=== PATIENT | female | born 1945 | race Caucasian/White ===

== ENCOUNTER 2019-03-07 07:47 | Day surgery (SDC) | payer MEDICARE, OTHER ==
[~2019-03-07] VITALS: Ht 152.4 cm; Wt 59.2 kg
[~2019-03-07 07:47] MED LIST: CELE200C PO; EXCED PO; LEVO100T8 PO; MULT1CAP20 PO
[2019-03-07 09:00] VITALS: Ht 152.4 cm; Wt 59.2 kg
[2019-03-07] MEDS ORDERED: LOSA50TA14 PO (09:09)
[2019-03-07] MEDS ORDERED: LEVO88TA3 PO (09:09)
[2019-03-07] MEDS ORDERED: GABA400C14 PO (09:09)
[2019-03-07 09:25] VITALS: BP 141/65; PULSE 59; RESP 16
--- NOTE | 2019-03-07 09:28 | PREAC ---
Date/Time of Note Date/Time of Note DATE: 03/07/19 TIME: : Anesthesia Eval and Record Evaluation Time Pre-Procedure Interview DATE: 03/07/19 TIME: : Age 73 Sex female NPO: 8 hrs Preoperative diagnosis Rectal bleeding; change in bowel habits Planned procedure Colonoscopy Past Medical History Past Medical History: Includes Cardio: HTN Endo: Hypothyroid Surgery & Anesthesia Issues No known issue (liu; thyroid sx) Meds Anticoagulation: No Beta Philippe within 24 hr: No Reason Beta Philippe not given: Pt. not on B-Philippe Reported Medications Losartan Potassium* (Losartan Potassium*) 50 Mg Tablet, 50 MG PO DAILY, TAB 03/07/19 Gabapentin* (Gabapentin*) 400 Mg Capsule, 800 MG PO TID, #180 CAP 03/07/19 Levothyroxine Sodium* (Levothyroxine Sodium*) 88 Mcg Tablet, 88 MCG PO BEFORE BREAKFAST, #30 TAB 03/07/19 Multivitamins* (Multivitamin*) 1 Udcap Capsule, 1 TAB PO DAILY, TAB 07/25/14 Discontinued Reported Medications Acetaminophen/Aspirin/Caffeine* (Excedrin*) 1 Tab Tab, 2 TAB PO, TAB 07/25/14 Celecoxib* (Celebrex*) 200 Mg Capsule, 200 MG PO BID PRN for PAIN, CAP 07/25/14 Levothyroxine Sodium* (Levothyroxine Sodium*) 100 Mcg Tablet, 100 MCG PO AC BREAKFAST, TAB 07/25/14 Meds reviewed: Yes Allergies Coded Allergies: No Known Allergy (Unverified , 07/25/14) Allergies Reviewed: Yes Labs/Studies Labs Reviewed: Reviewed by anesthesiologist test: N/A Pre-procedure Exam Airway: Adequate mouth opening, Adequate thyromental dist Mallampati: Mallampati II Teeth: Abnormal (dentures upper and lower) Lung: Normal Heart: Normal ASA Physical Status ASA physical status: 2 Emergency: None Planned Anesthetic General/MAC: MAC Pre-operative Attestations Prior to commencing anesthesia and surgery, the patient was re-evaluated, there was verification of: *The patient's identity *The results of appropriate recent lab work and preoperative vital signs *The above evaluation not changing prior to induction *Anesthetic plan, risk benefits, alternative and complications discussed with patient/family; questions answered; patient/family understands, accepts and wishes to proceed. KIMMY DUBON Mar 07, 2019 09:28
[2019-03-07] MEDS ORDERED: LIDOCAINE 2% (SDV) 5 ML INJ ONE (09:30)
[2019-03-07] MEDS ORDERED: FENTAnyl 50 MCG/ML VIAL IV PRN (09:30)
[2019-03-07] MEDS ORDERED: ACETAMINOPHEN 500 MG TAB PO PRN (09:30)
[2019-03-07] MEDS ORDERED: PROPOFOL 40 ML ONE (09:30)
[2019-03-07] MEDS ORDERED: ONDANSETRON 4 MG INJ IV PRN (09:30)
[2019-03-07] MEDS ORDERED: ALBUTEROL 0.083% (NEB) 2.5 MG/3 ML AMP HHN PRN (09:30)
--- NOTE | 2019-03-07 10:16 | PAC ---
Date/Time of Note Date/Time of Note DATE: 03/07/19 TIME: 10:14 Post-Anesthesia Notes Post-Anesthesia Note Last documented vital signs Vital Signs Date Temp Pulse Resp B/P (MAP) Pulse Ox O2 O2 Flow FiO2 Time Delivery Rate 03/07/19 98.8 98 59 61 16 18 141/65 97 99 Room 09:25 100 (90) 129/ Air face 7 62 mask 8L Activity: WNL Respiratory function: WNL Cardiovascular function: WNL Mental status: Baseline Pain reasonably controlled: Yes Hydration appropriate: Yes Nausea/Vomiting absent: Yes KIMMY DUBON Mar 07, 2019 10:16
[2019-03-07 10:45] VITALS: BP 157/77; PULSE 55
--- NOTE | 2019-03-08 09:37 | CONS ---
DATE OF ADMISSION: 03/07/2019 DATE OF CONSULTATION: PATIENT NAME: PARADISE MONTANO TYPE OF CONSULTATION: Preoperative gastroenterology. HISTORY OF PRESENT ILLNESS: Ms. Paradise Montano is a 73-year-old female patient who has been referred to me for further evaluation of change in the bowel habit with lower abdominal pain and occasional re ctal bleeding. The patient has history of colon polyp. Appetite is good and no weight loss. No upp er abdominal pain. Not on nonsteroidal anti-inflammatory agents. PAST MEDICAL HISTORY: Status post cholecystectomy. No liver disease. She has hypertension. Not a diabetic. No heart disease, lung problem or kidney disease. She is status post thyroid surgery and she is on thyroid replacement therapy. SOCIAL HISTORY: Occasional smoker. No alcohol abuse. FAMILY HISTORY: No family history of gastrointestinal tract neoplasm. ALLERGIES: NO DRUG ALLERGIES. MEDICATIONS: 1. Losartan 50 mg p.o. daily. 2. Levothyroxine 88 mcg p.o. daily. PHYSICAL EXAMINATION: VITAL SIGNS: She is 5 feet tall and weighs 131 pounds, BMI 25, blood pressure 150/84. HEART: Normal heart sounds. LUNGS: Clear. ABDOMEN: Soft. No masses. Normal bowel sounds. RECTAL: Deferred per the patient's request. It will be done at the time of colonoscopy. NEUROLOGIC: Normal. IMPRESSION: 1. Change in the bowel habit. 2. Rectal bleeding. 3. History of colon polyp. 4. Hypertension. 5. Arthritis. 6. Status post thyroid surgery with hypothyroidism. 7. Status post cholecystectomy. 8. The patient is an occasional smoker. PLAN: 1. The patient was strongly advised to stop smoking. 2. Follow up with the primary MD for watching the BMI and further management of hypertension. 3. Colonoscopy for further evaluation. The procedure and possible complications are well explained to the patient. The patient understands and consents to the procedure. I thank you once again. With warmest personal regards, Dictated By: DAHIANA BEEBE/PHYLLIS Conf#: [id number] DID#: [id number]
== END 2019-03-07 12:43 | disposition home or self-care (01) ==
LOC: GIL 07:47
PROVIDERS: ATTEND Internal Medicine Gastroenterology
DX: R19.4 Change in bowel habit (principal); K64.8 Other hemorrhoids; I10 Essential (primary) hypertension
CPT/HCPCS: 88305

== ENCOUNTER 2019-03-29 15:22 | Emergency (ER) | payer MEDICARE, OTHER ==
[~2019-03-29] VITALS: Wt 60.5 kg
[~2019-03-29 15:22] MED LIST changes: -CELE200C PO; -EXCED PO; +GABA400C14 PO; -LEVO100T8 PO; +LEVO88TA3 PO; +LOSA50TA14 PO
[2019-03-29 16:19] VITALS: Wt 60.5 kg
[2019-03-29 17:12] VITALS: BP 167/80; PULSE 80; RESP 18
[2019-03-29] MEDS ORDERED: ONDANSETRON 4 MG INJ IV STA (17:13)
[2019-03-29] MEDS ORDERED: PROCHLORPERAZINE 10 MG INJ IV STA (17:13)
[2019-03-29] MEDS ORDERED: KETOROLAC 30 MG INJ IV STA (17:13)
[2019-03-29] MEDS ORDERED: ONDA4TAB14 PO (18:15)
--- NOTE | 2019-03-29 18:33 | ERD ---
ER Documentation Chief Complaint Chief Complaint SENT BY CLINIC FOR MURCIA X2 DAYS, MIGRAINE MED NOT WORKING HPI This is a 73-year-old female with history of headaches and migraines who present s to the ED complaining of a headache after running of her blood pressure medications. Pain has been constant for the past 2 days. She describes the pain as pressure-like, which starts at the base of her neck and radiates upwards towards her frontal scalp. Headache is associated with photophobia and nausea. She states headache is very similar to her previous migraine headaches. She has taken Imitrex with mild relief of her symptoms. She states this is not the worst headache of her life. Denies any focal weakness. Denies any changes in vision. Denies any fevers or chills. Denies any other symptoms. ROS All systems reviewed and are negative except as per history of present illness. Medications Home Meds Active Scripts Ondansetron (Ondansetron Odt) 4 Mg Tab.rapdis, 4 MG PO Q6H PRN for NAUSEA AND/OR VOMITING, #10 TAB Prov:AD HOWARD PA-C 03/29/19 Reported Medications Losartan Potassium* (Losartan Potassium*) 50 Mg Tablet, 50 MG PO DAILY, TAB 03/07/19 Gabapentin* (Gabapentin*) 400 Mg Capsule, 800 MG PO TID, #180 CAP 03/07/19 Levothyroxine Sodium* (Levothyroxine Sodium*) 88 Mcg Tablet, 88 MCG PO BEFORE BREAKFAST, #30 TAB 03/07/19 Multivitamins* (Multivitamin*) 1 Udcap Capsule, 1 TAB PO DAILY, TAB 07/25/14 Allergies Allergies: Coded Allergies: No Known Allergy (Unverified , 07/25/14) PMhx/Soc History of Surgery: Yes (CHOLECYSECTOMY, THYROID SX) Anesthesia Reaction: No Hx Neurological Disorder: No Hx Respiratory Disorders: No Hx Cardiac Disorders: Yes (HYPERTENSION) Hx Psychiatric Problems: No Hx Miscellaneous Medical Probl: No Hx Alcohol Use: No Hx Substance Use: No Hx Tobacco Use: No Physical Exam Vitals Vital Signs Date Temp Pulse Resp B/P (MAP) Pulse Ox O2 O2 Flow FiO2 Time Delivery Rate 03/29/19 80 18 167/80 99 High Flow 17:12 (109) 03/29/19 97.6 61 20 174/79 99 16:19 (110) Physical Exam Const: No acute distress Head: Atraumatic Eyes: Normal Conjunctiva. EOMI. PERRL. ENT: Normal External Ears, Nose and Mouth. Neck: Full range of motion. No meningismus. Resp: Clear to auscultation bilaterally Cardio: Regular rate and rhythm, no murmurs Skin: No petechiae or rashes Neuro: M/S: Alert and oriented Face: EOMI, face and pharynx with normal sensation and function Motor: Normal strength throughout Sensation: Normal sensation throughout Speech: Normal Cerebel: Normal coordination Normal gait Psych: Normal Mood and Affect Results 24 hrs Current Medications Medications Dose Sig/Estefania Start Time Status Last (Trade) Ordered Route PRN Stop Time Admin Dose Reason Admin 10 mg ONCE STAT 03/29/19 DC 03/29/19 Prochlorperaz IV 17:13 03/29/19 17:22 ine 17:14 (Compazine Inj) Ondansetron 4 mg ONCE STAT 03/29/19 DC 03/29/19 HCl (Zofran IV 17:13 03/29/19 17:21 Inj) 17:14 Ketorolac 15 mg ONCE STAT 03/29/19 DC 03/29/19 Tromethamine IV 17:13 03/29/19 17:21 (Toradol) 17:14 Procedures/MDM ED COURSE: The patient was given IV fluids, Toradol, Zofran, Compazine The medication was well tolerated and the patient had market improvement in symptoms. The patient remained stable throughout ED course. MEDICAL DECISION MAKIN-year-old female with history of migraine headaches presents with headache after running out of her blood pressure medications. History and physical most consistent with primary headache. Vital signs are stable. No focal neurological deficits on physical exam. Clinical presentation not consistent with subarachnoid hemorrhage, epidural or subdural hematoma, IC mass, CVA, encephalitis or meningitis. Her BP significantly improved throughout her stay here. I have low suspicion for an emergent or urgent hypertensive crisis. Patient felt better and wanted to be discharged home. Recommended PCP follow-up in 48 hours. Strict return precautions were discussed. PRESCRIPTIONS: Zofran SPECIALIST FOLLOW UP RECOMMENDED: None Patient has been advised to follow up with primary care in 1-2 days. Departure Diagnosis: Primary Impression: Headache Headache type: unspecified Headache chronicity pattern: acute headache Intractability: not intractable Qualified Codes: R51 - Headache Condition: Stable Patient Instructions: Self-Care for Headaches Referrals: [facility] YOU HAVE RECEIVED A MEDICAL SCREENING EXAM AND THE RESULTS INDICATE THAT YOU DO NOT HAVE A CONDITION THAT REQUIRES URGENT TREATMENT IN THE EMERGENCY DEPARTMENT. FURTHER EVALUATION AND TREATMENT OF YOUR CONDITION CAN WAIT UNTIL YOU ARE SEEN IN YOUR DOCTORS OFFICE WITHIN THE NEXT 1-2 DAYS. IT IS YOUR RESPONSIBILITY TO MAKE AN APPOINTMENT FOR FOLOW-UP CARE. IF YOU HAVE A PRIMARY DOCTOR --you should call your primary doctor and schedule an appointment IF YOU DO NOT HAVE A PRIMARY DOCTOR YOU CAN CALL OUR PHYSICIAN REFERRAL HOTLINE AT IF YOU CAN NOT AFFORD TO SEE A PHYSICIAN YOU CAN CHOSE FROM THE FOLLOWING [facility] [address] [facility] [address] [facility] [facility] [address] [facility] [facility] [address] [facility] [facility] [address] [facility]. [facility] [address] [facility]. [facility] YOU HAVE RECEIVED A MEDICAL SCREENING EXAM AND THE RESULTS INDICATE THAT YOU DO NOT HAVE A CONDITION THAT REQUIRES URGENT TREATMENT IN THE EMERGENCY DEPARTMENT. FURTHER EVALUATION AND TREATMENT OF YOUR CONDITION CAN WAIT UNTIL YOU ARE SEEN IN YOUR DOCTORS OFFICE WITHIN THE NEXT 1-2 DAYS. IT IS YOUR RESPONSIBILITY TO MAKE AN APPOINTMENT FOR FOLOW-UP CARE. IF YOU HAVE A PRIMARY DOCTOR --you should call your primary doctor and schedule and appointment IF YOU DO NOT HAVE A PRIMARY DOCTOR YOU CAN CALL OUR PHYSICIAN REFERRAL HOTLINE AT . IF YOU CAN NOT AFFORD TO SEE A PHYSICIAN YOU CAN CHOSE FROM THE FOLLOWING [facility] INSTITUTIONS: [facility] [address] [place] [address] [facility] [address] [place] [address] [facility] [address] [place] [address] Additional Instructions: You must take your blood pressure medications. Also take the sumatriptan for headaches. Paciente aconseja volver a Departamento de urgencias inmediatamente para sntomas nuevos o que empeoran . Paciente aconseja posteriores con el PCP en 1-2 matute. Si el paciente no tiene ninguna de atencin primaria pueden seguir con [facility] [address] [place] [address] [facility] + [address] [address] AD HOWARD PA-C Mar 29, 2019 18:33
== END 2019-03-29 18:21 | disposition home or self-care (01) ==
LOC: FTE 15:22
DX: R51 Headache (principal); I10 Essential (primary) hypertension; R11.0 Nausea
CPT/HCPCS: 96374; 96375; 99284; J0780; J1885; J2405